=== PATIENT | male | born 1980 | race Caucasian/White ===

== ENCOUNTER 2019-03-15 14:44 | Emergency (ER) | payer MEDICAID ==
[~2019-03-15] VITALS: Ht 182.9 cm; Wt 84.8 kg
[~2019-03-15 14:44] MED LIST: NAPR-232 PO; NO HOME MEDS
[2019-03-15 14:46] VITALS: BP 153/103
[2019-03-15] MEDS ORDERED: ketorolac tromethamine 15mg/ml inj. IM ONE (15:55)
[2019-03-15] MEDS ORDERED: CYCL-1 PO (16:01)
[2019-03-15] MEDS ORDERED: IBUP-1984 PO (16:01)
== END 2019-03-15 16:27 | disposition home or self-care (01) ==
LOC: ER 14:45
DX: M54.42 Lumbago with sciatica, left side (principal); G89.29 Other chronic pain; M25.551 Pain in right hip; M25.552 Pain in left hip; R10.32 Left lower quadrant pain; Z79.899 Other long term (current) drug therapy
CPT/HCPCS: 96372; 99284; J1885

== ENCOUNTER 2022-10-10 17:13 | Emergency (ER) | payer MEDICAID ==
[~2022-10-10] VITALS: Ht 180.3 cm; Wt 86.4 kg
[~2022-10-10 17:13] MED LIST changes: +CYCL-1 PO
[2022-10-10 17:36] VITALS: BP 139/88
[2022-10-10] MEDS ORDERED: CEPH-585 PO (21:08)
[2022-10-10] MEDS ORDERED: bacitracin 15gm ointment TP ONE (21:10)
[2022-10-10] MEDS ORDERED: cephalexin 500mg capsule PO ONE (21:10)
== END 2022-10-10 21:22 | disposition home or self-care (01) ==
LOC: ER 17:16
DX: S90.929A Unspecified superficial injury of unspecified foot, initial encounter (principal); R22.1 Localized swelling, mass and lump, neck; G89.29 Other chronic pain; M54.50 Low back pain, unspecified; X58.XXXA Exposure to other specified factors, initial encounter; Y93.89 Activity, other specified; Y92.89 Other specified places as the place of occurrence of the external cause; Y99.8 Other external cause status
CPT/HCPCS: 99283